=== PATIENT | male | born 1990 | race Caucasian/White ===

== ENCOUNTER 2017-04-05 13:15 | Emergency (ER) | payer OTHER ==
[~2017-04-05] VITALS: Ht 185.4 cm; Wt 82.6 kg
[~2017-04-05 13:15] MED LIST: IVIG IV
[2017-04-05 13:29] VITALS: Ht 185.4 cm; Wt 82.6 kg
--- NOTE | 2017-04-05 14:31 | EMERGENCY ROOM VISIT NOTE ---
History First contact with patient: 13:30 Chief Complaint: ILLNESS Stated Complaint: fever History of Present Illness The patient is a 26 year old male with a PMH of brutons agammaglobulinemia who presents to the Emergency Room with complaints of fever He was receiving his IVIG therapy this afternoon which he receives q28 days and near the end of his infusion today he started having fevers and chills. He was therefore sent to the emergency department for further workup. He has had a runny nose for the last 2 weeks, but denies any other symptoms. He recently got back from [facility] on Monday and he was there for 3 weeks. When he was on holiday his uncle was coughing a lot. The patient was admitted to the hospital March 2016 for sepsis secondary to eczema infection. Review of Systems CONSTITUTIONAL: He has fevers and chills No recent infections. No weight loss or weight gain. NEUROLOGIC: No headaches, dizziness or syncopal episodes. HEENT: No hearing or visual changes. clear nasal discharge. No mouth sores, thrush or oral lesions. CARDIOVASCULAR: No chest pain or palpitations. RESPIRATORY: No SOB, dyspnea, cough or hemoptysis. GASTROINTESTINAL: No nausea, vomiting, diarrhea, constipation, reflux, melena or hematochezia. GENITOURINARY: No dysuria, frequency, urgency, incontinence or hematuria. MUSCULOSKELETAL: no joint pain, no muscle aches SKIN: eczema rash on both lower limbs, no other rashes HEMATOLOGIC: No bleeding or abnormal bruising Past Medical/Surgical History Medical Problems: (1) Eczema (2) History of meningitis (3) History of recurrent otitis media (4) Sepsis (5) X-linked agammaglobulinemia Surgical Problems: (1) Hx of tympanostomy tubes Family History X-linked agammaglobulinemia Maternal Cousin Social History Smoking Status: Never Smoker Alcohol Use: occasionally Drug Use: none Marital Status: single Housing Status: lives alone Occupation Status: employed Current/Historical Medications No Active Prescriptions or Reported Meds Allergies NKDA Physical Exam Vital Signs Date Time Temp Pulse Resp B/P (MAP) Pulse Ox O2 Delivery O2 Flow Rate FiO2 04/05/17 13:29 81 04/05/17 13:29 37.4 77 18 127/69 95 Room Air Physical Exam HEENT: Head - normocephalic and atraumatic. Pupils are equal, round, and reactive to light. Extraocular eye muscles are intact and sclera are anicteric. Ears - bilaterally patent canals with noninjected tympanic membranes and no evidence of hemotympanum. Nose - clear nasal discharge. Mouth - moist buccal mucosa. Oropharynx is nonerythematous and there is no tonsillar exudate or edema noted. Neck: Supple; no JVD, nuchal rigidity, mild cervical lymphadenopathy, no auscultated bruits. Heart: Regular rate and rhythm. There is a normal S1 and S2 with no murmurs, clicks, or gallops appreciated. Lungs: Clear to auscultation bilaterally with no wheezes, rales, or rhonchi. Abdomen: Soft, completely nontender, nondistended, with good bowel sounds. There are no palpable pulsatile masses or hepatosplenomegaly. There is no guarding, rigidity, or rebound noted. Extremities: No evidence of cyanosis, clubbing, or edema. There are easily palpable peripheral pulses. eczematous rash on both feet bilaterally and on lower garcia, no sign of infection, non tender and not warm to palpation Neuro:The patient is awake and alert, oriented to day, time, and place. Muscle strength is 5/5 in all 4 extremities. The patient has equal industrial hygiene technician strength and equal pedal push and pull. Medical Decision & Procedures Laboratory Results 04/05/17 14:18 Red Blood Count 4.61, Mean Corpuscular Volume 89.2, Mean Corpuscular Hemoglobin 31.0, Mean Corpuscular Hemoglobin Concent 34.8, Mean Platelet Volume 10.5, Neutrophils (%) (Auto) 81.1, Lymphocytes (%) (Auto) 10.0, Monocytes (%) (Auto) 7.4, Eosinophils (%) (Auto) 1.3, Basophils (%) (Auto) 0.0, Neutrophils # (Auto) 6.89, Lymphocytes # (Auto) 0.85, Monocytes # (Auto) 0.63, Eosinophils # (Auto) 0.11, Basophils # (Auto) 0.00 04/05/17 14:18 Test 04/05/17 14:15 04/05/17 14:18 04/05/17 14:23 04/05/17 15:35 Influenza Type A Antigen Neg for Influ A (NEG) Influenza Type B Antigen Neg for Influ B (NEG) White Blood Count 8.50 K/uL (4.8-10.8) Red Blood Count 4.61 M/uL (4.7-6.1) Hemoglobin 14.3 g/dL (14.0-18.0) Hematocrit 41.1 % (42-52) Mean Corpuscular Volume 89.2 fL (80-100) Mean Corpuscular Hemoglobin 31.0 pg (25-34) Mean Corpuscular Hemoglobin Concent 34.8 g/dl (32-36) Platelet Count 160 K/uL (130-400) Mean Platelet Volume 10.5 fL (7.4-10.4) Neutrophils (%) (Auto) 81.1 % Lymphocytes (%) (Auto) 10.0 % Monocytes (%) (Auto) 7.4 % Eosinophils (%) (Auto) 1.3 % Basophils (%) (Auto) 0.0 % Neutrophils # (Auto) 6.89 K/uL (1.4-6.5) Lymphocytes # (Auto) 0.85 K/uL (1.2-3.4) Monocytes # (Auto) 0.63 K/uL (0.11-0.59) Eosinophils # (Auto) 0.11 K/uL (0-0.5) Basophils # (Auto) 0.00 K/uL (0-0.2) RDW Standard Deviation 41.0 fL (36.4-46.3) RDW Coefficient of Variation 12.8 % (11.5-14.5) Immature Granulocyte % (Auto) 0.2 % Immature Granulocyte # (Auto) 0.02 K/uL (0.00-0.02) Anion Gap 5.0 mmol/L (3-11) Est Creatinine Clear Calc Drug Dose 116.0 ml/min Estimated GFR () 107.6 Estimated GFR (Non- 92.8 BUN/Creatinine Ratio 12.6 (10-20) Calcium Level 9.0 mg/dl (8.5-10.1) Total Bilirubin 0.5 mg/dl (0.2-1) Aspartate Amino Transf (AST/SGOT) 23 U/L (15-37) Alanine Aminotransferase (ALT/SGPT) 31 U/L (12-78) Alkaline Phosphatase 73 U/L (45-117) Total Protein 8.0 gm/dl (6.4-8.2) Albumin 3.3 gm/dl (3.4-5.0) Globulin 4.7 gm/dl (2.5-4.0) Albumin/Globulin Ratio 0.7 (0.9-2) Immunoglobulin G 1950.0 mg/dL (700-1600) Lyme Disease IgG Antibody NEG (NEG) Lyme Disease IgM Antibody NEG (NEG) Lactic Acid Level 0.8 mmol/L (0.4-2.0) Urine Color YELLOW Urine Appearance CLEAR (CLEAR) Urine pH 7.0 (4.5-7.5) Urine Specific [place] 1.007 (1.000-1.030) Urine Protein NEG (NEG) Urine Glucose (UA) NEG (NEG) Urine Ketones NEG (NEG) Urine Occult Blood TRACE (NEG) Urine Nitrite NEG (NEG) Urine Bilirubin NEG (NEG) Urine Urobilinogen NEG (NEG) Urine Leukocyte Esterase SMALL (NEG) Urine WBC (Auto) >30 /hpf (0-5) Urine RBC (Auto) 0-4 /hpf (0-4) Urine Hyaline Casts (Auto) 0 /lpf (0-5) Urine Epithelial Cells (Auto) 5-10 /lpf (0-5) Urine Bacteria (Auto) NEG (NEG) ED Course 13:45 - patient was seen in his room and examined by myself 14:01 - patient case was discussed with Dr. Cummins and labs were ordered 14:08 - Dr. Varner was spoken to and advised us to order IgG levels and told us for patient to follow up with him if symptoms were worsening 15:30 - Patient was seen at the bedside and has been feeling well. Informed of normal labs and CXR. Awaiting urine results 16:30 - Saw patient at the bedside and he says he is feeling better. They have made appointment with Dr. Varner tomorrow. Medical Decision The patient's history was concerning for fever. Differential diagnosis: Etiologies such as viral syndrome, otitis, pharyngitis, pneumonia, influenza, meningitis, urinary tract infection, sepsis, bacteremia, as well as others were entertained. Impression Primary Impression: Fever and chills Departure Information Dispostion Being Evaluated By Surgeon Prescriptions No Active Prescriptions or Reported Meds Referrals Freeman Neff MD (PCP) Patient Instructions [facility] Additional Instructions Patient to follow up with Dr. Varner tomorrow
[2017-04-05 14:38] LABS: EOS % 1.3 %; EOS ABS # 0.11 K/uL (0-0.5); HEMATOCRIT 41.1 % (42-52); HEMOGLOBIN 14.3 g/dL (14.0-18.0); IG# 0.02 K/uL (0.00-0.02); LYMPH ABS # 0.85 K/uL (1.2-3.4); MEAN CELL VOLUME 89.2 fL (80-100); MEAN CORPUSCULAR HGB CONC 34.8 g/dl (32-36); MEAN PLATELET VOLUME 10.5 fL (7.4-10.4); MONO % 7.4 %; MONO ABS # 0.63 K/uL (0.11-0.59); NEUT % 81.1 %; NEUT ABS # 6.89 K/uL (1.4-6.5); PLATELET COUNT 160 K/uL (130-400); RED CELL DISTRIBUTION WIDTH CV 12.8 % (11.5-14.5)
--- NOTE | 2017-04-05 14:41 | EMERGENCY ROOM VISIT NOTE ---
History Report prepared by Karolyn: Bill Zimmer Under the Supervision of: Dr. Zen Cummins M.D. First contact with patient: 13:30 Chief Complaint: ILLNESS Stated Complaint: fever History of Present Illness The patient is a 26 year old white male with a past medical history of Goyo's Agammaglobulinemia who presents to the ED with a cc of a possible fever that occurred earlier today. Positive rhinorrhea. Negative chills, diaphoresis, and fatigue. 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 Once his infusion completed, he began to have a sudden onset of chills , diaphoresis, and fatigue. These symptoms have now resolved. He notes that he was recently in [facility] for 20 days and was in contact with his Uncle who is sick. His last IVIG was 03/10/17. He receives this q28. Source of History: patient Onset: earlier today Position: other (Global) Symptom Intensity: mild Quality: other (Fever) Timing: resolved Associated Symptoms: No chills, No diaphoresis, No fatigue Note: The patient is experiencing rhinorrhea. Review of Systems See HPI for pertinent positives and negatives. A total of ten systems were reviewed and were otherwise negative. Past Medical & Surgical Medical Problems: (1) Eczema (2) History of meningitis (3) History of recurrent otitis media (4) Sepsis (5) X-linked agammaglobulinemia Surgical Problems: (1) Hx of tympanostomy tubes Family History X-linked agammaglobulinemia Maternal Cousin Social History Smoking Status: Never Smoker Alcohol Use: occasionally Drug Use: none Marital Status: single Housing Status: lives alone Current/Historical Medications No Active Prescriptions or Reported Meds Allergies Coded Allergies: Immune Globulins (Unverified Adverse Reaction, Unknown, NO RXN TO IVIG... PATIENT USES OWN GAMUNEX FROM [facility], 04/05/17) DISPENSE PATIENT OWN MED Physical Exam Vital Signs Date Time Temp Pulse Resp B/P (MAP) Pulse Ox O2 Delivery O2 Flow Rate FiO2 04/05/17 16:47 36.8 74 18 127/69 97 Room Air 04/05/17 13:29 81 04/05/17 13:29 37.4 77 18 127/69 95 Room Air Physical Exam GENERAL: Awake, alert, well-appearing, non-toxic, NAD HENT: Normocephalic, atraumatic. Posterior oropharynx clear. No tonsillar exudate, no tonsillar or uvular deviation. EYES: Normal conjunctiva. Sclera non-icteric. NECK: Supple. No nuchal rigidity. FROM. RESPIRATORY: CTAB, no rhonchi, wheezing, crackles CARDIAC: RRR, no MRG ABDOMEN: Soft, mild suprapubic discomfort, nonsurgical abdomen, ND, BS+ MSK: No chest wall TTP, no LE edema. NEURO: GCS 15, CN 2-12 intact, moves all 4s on command SKIN: Excoriations to the b/l LE. No cellulitic changes. No purulence. No rash or jaundice noted. Medical Decision & Procedures ER Provider Diagnostic Interpretation: Radiology results as stated below per my review and radiologist interpretation: CHEST 2 VIEWS ROUTINE CLINICAL HISTORY: Fever of unknown origin COMPARISON STUDY: 02/22/2016 FINDINGS: The cardiac and mediastinal contours are normal. There is no evidence of focal pulmonary consolidation. There is no evidence of failure. No pleural effusions are visualized.[ IMPRESSION: No active disease in the chest. Electronically signed by: Oracio Rosa M.D. 04/05/2017 3:10 PM Dictated Date/Time: 04/05/2017 3:10 PM Laboratory Results 04/05/17 14:18 Red Blood Count 4.61, Mean Corpuscular Volume 89.2, Mean Corpuscular Hemoglobin 31.0, Mean Corpuscular Hemoglobin Concent 34.8, Mean Platelet Volume 10.5, Neutrophils (%) (Auto) 81.1, Lymphocytes (%) (Auto) 10.0, Monocytes (%) (Auto) 7.4, Eosinophils (%) (Auto) 1.3, Basophils (%) (Auto) 0.0, Neutrophils # (Auto) 6.89, Lymphocytes # (Auto) 0.85, Monocytes # (Auto) 0.63, Eosinophils # (Auto) 0.11, Basophils # (Auto) 0.00 04/05/17 14:18 Test 04/05/17 14:15 04/05/17 14:18 04/05/17 14:23 04/05/17 15:35 Influenza Type A Antigen Neg for Influ A (NEG) Influenza Type B Antigen Neg for Influ B (NEG) White Blood Count 8.50 K/uL (4.8-10.8) Red Blood Count 4.61 M/uL (4.7-6.1) Hemoglobin 14.3 g/dL (14.0-18.0) Hematocrit 41.1 % (42-52) Mean Corpuscular Volume 89.2 fL (80-100) Mean Corpuscular Hemoglobin 31.0 pg (25-34) Mean Corpuscular Hemoglobin Concent 34.8 g/dl (32-36) Platelet Count 160 K/uL (130-400) Mean Platelet Volume 10.5 fL (7.4-10.4) Neutrophils (%) (Auto) 81.1 % Lymphocytes (%) (Auto) 10.0 % Monocytes (%) (Auto) 7.4 % Eosinophils (%) (Auto) 1.3 % Basophils (%) (Auto) 0.0 % Neutrophils # (Auto) 6.89 K/uL (1.4-6.5) Lymphocytes # (Auto) 0.85 K/uL (1.2-3.4) Monocytes # (Auto) 0.63 K/uL (0.11-0.59) Eosinophils # (Auto) 0.11 K/uL (0-0.5) Basophils # (Auto) 0.00 K/uL (0-0.2) RDW Standard Deviation 41.0 fL (36.4-46.3) RDW Coefficient of Variation 12.8 % (11.5-14.5) Immature Granulocyte % (Auto) 0.2 % Immature Granulocyte # (Auto) 0.02 K/uL (0.00-0.02) Anion Gap 5.0 mmol/L (3-11) Est Creatinine Clear Calc Drug Dose 116.0 ml/min Estimated GFR () 107.6 Estimated GFR (Non- 92.8 BUN/Creatinine Ratio 12.6 (10-20) Calcium Level 9.0 mg/dl (8.5-10.1) Total Bilirubin 0.5 mg/dl (0.2-1) Aspartate Amino Transf (AST/SGOT) 23 U/L (15-37) Alanine Aminotransferase (ALT/SGPT) 31 U/L (12-78) Alkaline Phosphatase 73 U/L (45-117) Total Protein 8.0 gm/dl (6.4-8.2) Albumin 3.3 gm/dl (3.4-5.0) Globulin 4.7 gm/dl (2.5-4.0) Albumin/Globulin Ratio 0.7 (0.9-2) Immunoglobulin G 1950.0 mg/dL (700-1600) Lyme Disease IgG Antibody NEG (NEG) Lyme Disease IgM Antibody NEG (NEG) Lactic Acid Level 0.8 mmol/L (0.4-2.0) Urine Color YELLOW Urine Appearance CLEAR (CLEAR) Urine pH 7.0 (4.5-7.5) Urine Specific [place] 1.007 (1.000-1.030) Urine Protein NEG (NEG) Urine Glucose (UA) NEG (NEG) Urine Ketones NEG (NEG) Urine Occult Blood TRACE (NEG) Urine Nitrite NEG (NEG) Urine Bilirubin NEG (NEG) Urine Urobilinogen NEG (NEG) Urine Leukocyte Esterase SMALL (NEG) Urine WBC (Auto) >30 /hpf (0-5) Urine RBC (Auto) 0-4 /hpf (0-4) Urine Hyaline Casts (Auto) 0 /lpf (0-5) Urine Epithelial Cells (Auto) 5-10 /lpf (0-5) Urine Bacteria (Auto) NEG (NEG) Laboratory results reviewed by me ED Course 1330: The patient was evaluated in room C1B. A complete history and physical exam was performed. 1650: I reevaluated the patient. Discussed results and discharge instructions: He verbalized understanding and agreement. The patient is ready for discharge. Medical Decision The patient is a 26 year old white male with a past medical history of Goyo's Agammaglobulinemia who presents to the ED with a cc of a possible fever that occurred earlier today. Positive rhinorrhea. Negative chills, diaphoresis, and fatigue. Differential diagnosis: Etiologies such as viral syndrome, otitis, pharyngitis, pneumonia, influenza, meningitis, urinary tract infection, sepsis, bacteremia, as well as others were entertained. Patient was seen and evaluated the bedside. Patient does have a history of predominance and does receive IV Ig treatments every 20 days. Patient was receiving his normal treatment when he did develop some mild chills. Patient has had some rhinorrhea but no other infectious symptoms. Patient patient does have a history of some eczema did have a stay in the hospital prior secondary to some possible cellulitic changes from his eczema. Patient is very well- appearing is afebrile with stable vital signs. Patient did have blood work completed along with urinalysis, chest x-ray, and blood cultures. Patient's blood work was fairly unremarkable. Patient had negative flu and Lyme's. Patient did have an elevated IgG which is likely consistent with his recent infusion. The resident did speak with the b2b sales executive with whom he follows. He agreed that if there is nothing acute he could follow-up and see him in clinic tomorrow. Patient's urinalysis was negative and the patient had a negative chest x-ray. Patient's white blood cell count is normal. Patient was deemed suitable for outpatient follow-up and treatment the patient was told to follow-up with his b2b sales executive tomorrow as instructed. Patient was agreeable to this plan of care. Patient was given strict follow-up, discharge, and return precautions. All questions were answered. Patient was deemed suitable for outpatient follow-up at this time. Patient agreed with the plan of care and was safely discharged home. Medication Reconcilliation Current Medication List: was personally reviewed by me Blood Pressure Screening Patient's blood pressure: Normal blood pressure Blood pressure disposition: Did not require urgent referral Impression Primary Impression: Fever and chills Additional Impression: X-linked agammaglobulinemia Scribe Attestation The scribe's documentation has been prepared under my direction and personally reviewed by me in its entirety. I confirm that the note above accurately reflects all work, treatment, procedures, and medical decision making performed by me. Departure Information Dispostion Home / Self-Care Prescriptions No Active Prescriptions or Reported Meds Referrals Freeman Neff MD (PCP) Forms HOME CARE DOCUMENTATION FORM, IMPORTANT VISIT INFORMATION, WORK / SCHOOL INSTRUCTIONS Patient Instructions My [facility] Additional Instructions Patient to follow up with Dr. Varner tomorrow Problem Qualifiers
[2017-04-05 14:45] LABS: INFLUENZA B ANTIGEN Neg for Influ B (NEG)
[2017-04-05 15:02] LABS: ALBUMIN 3.3 gm/dl (3.4-5.0); CREATININE 1.1 mg/dl (0.60-1.40); POTASSIUM 3.7 mmol/L (3.5-5.1)
--- NOTE | 2017-04-05 15:12 | DIAGNOSTIC IMAGING REPORT ---
CHEST 2 VIEWS ROUTINE CLINICAL HISTORY: Fever of unknown origin COMPARISON STUDY: 02/22/2016 FINDINGS: The cardiac and mediastinal contours are normal. There is no evidence of focal pulmonary consolidation. There is no evidence of failure. No pleural effusions are visualized.[ IMPRESSION: No active disease in the chest. Electronically signed by: Oracio Rosa M.D. 04/05/2017 3:10 PM Dictated Date/Time: 04/05/2017 3:10 PM
[2017-04-05] MEDS ORDERED: KETOROLAC TROMETHAMINE 30 MG/ML VIAL IV STA (15:19)
[2017-04-05] MEDS ORDERED: MoRPHine SULFATE 2 MG/ML CARP IV STA (15:19)
[2017-04-05 16:47] VITALS: BP 127/69; PULSE 74; TEMP 36.8; O2SAT 97
[2017-10-19] MEDS ORDERED: CEPH500C PO (03:18)
== END 2017-04-05 16:56 | disposition home or self-care (01) ==
LOC: EDBD 13:15 → C.EDC 13:17
DX: R50.9 Fever, unspecified (principal); D80.0 Hereditary hypogammaglobulinemia; Z83.2 Family history of diseases of the blood and blood-forming organs and certain disorders involving the immune mechanism